=== PATIENT | female | born 1995 | race Caucasian/White ===

== ENCOUNTER → 2018-03-25 | Outpatient (CLI) | payer OTHER | LOC: ULTRA 11:05 | DX: R10.2 Pelvic and perineal pain (principal) ==

== ENCOUNTER 2018-05-03 02:08 | Emergency (ER) | payer OTHER ==
[~2018-05-03] VITALS: Ht 154.9 cm; Wt 43.1 kg
[2018-05-03 02:51] LABS: URINE BILIRUBIN NEGATIVE (Negative); URINE BLOOD NEGATIVE (Negative); URINE CLARITY CLEAR; URINE COLOR YELLOW; URINE GLUCOSE-RANDOM* NEGATIVE (Negative); URINE KETONES NEGATIVE (Negative); URINE LEUKOCYTES-REFLEX NEGATIVE (Negative); URINE NITRITE-REFLEX NEGATIVE (Negative); URINE PROTEIN (DIPSTICK) NEGATIVE (Negative); URINE SPECIFIC GRAVITY >= 1.030 (1.005-1.035); URINE UROBILINOGEN 0.2 E.U./dl (0.2-1.0)
[2018-05-03] MEDS ORDERED: LAMOTRIGINE OD100 MG PO (03:04)
[2018-05-03] MEDS ORDERED: ZOFRAN ODT4 MG PO ×2 (03:05→03:33)
[2018-05-03] MEDS ORDERED: YAZ 28 TABLET1 EACH PO (03:06)
[2018-05-03 03:09] LABS: ABSOLUTE NEUTROPHILS 6.8 thou/uL (1.4-8.2); BASOPHILS 0.3 % (0.0-2.0); EOSINOPHILS 0.6 % (0.0-3.0); HEMOGLOBIN 12.3 gm/dL (12.0-15.0); LYMPHOCYTES 17.1 % (24.0-44.0); MCH 33.7 pg (26.0-34.0); MCHC 35.1 g/dL (28.0-37.0); MCV 95.8 fL (80.0-100.0); MONOCYTES 5.1 % (1.0-8.0); PLATELET COUNT 184 thou/uL (150-400); POLYS 76.9 % (36.0-66.0); RBC 3.65 mil/uL (4.20-5.00); RDW 11.9 % (10.5-14.5); WBC 8.8 thou/uL (4.0-11.0)
[2018-05-03 03:17] LABS: CALCIUM 8.7 mg/dL (8.5-10.1); CREATININE 0.8 mg/dL (0.6-1.0); POTASSIUM 3.2 mmol/L (3.5-5.1)
[2018-05-03 03:22] LABS: ALBUMIN 3.4 g/dL (3.4-5.0); DIRECT BILIRUBIN 0.1 mg/dL (<0.1-0.3); TOTAL BILIRUBIN 0.5 mg/dL (<0.1-1.0); TOTAL PROTEIN 6.8 g/dL (6.4-8.2)
[2018-05-03] MEDS ORDERED: CARAFATE 1 GM TA1 GM PO (03:33)
[2018-05-03] MEDS ORDERED: PROTONIX 20 MG20 M1 PO (03:33)
[2018-05-03 04:02] VITALS: BP 98/59
== END 2018-05-03 04:03 | disposition home or self-care (01) ==
LOC: ER 02:08
PROVIDERS: Emergency Medicine
DX: R10.12 Left upper quadrant pain (principal); R11.2 Nausea with vomiting, unspecified; M54.5 Low back pain; G43.909 Migraine, unspecified, not intractable, without status migrainosus